=== PATIENT | female | born 1965 | race Caucasian/White ===

== ENCOUNTER → 2017-11-02 | Outpatient (CLI) | payer OTHER | LOC: LAB.O 15:29 | PROVIDERS: ATTEND Specialist | DX: G35 Multiple sclerosis (principal); N39.0 Urinary tract infection, site not specified ==

== ENCOUNTER → 2018-06-26 | Outpatient (CLI) | payer OTHER | LOC: LAB.O 12:43 | PROVIDERS: ATTEND Specialist | DX: G35 Multiple sclerosis (principal); E78.00 Pure hypercholesterolemia, unspecified; E03.9 Hypothyroidism, unspecified ==

== ENCOUNTER → 2018-11-28 | Outpatient (CLI) | payer OTHER | LOC: LAB.O 09:54 | PROVIDERS: ATTEND Specialist | DX: G35 Multiple sclerosis (principal) ==

== ENCOUNTER → 2019-06-26 | Outpatient (CLI) | payer OTHER | LOC: LAB.O 10:05 | PROVIDERS: ATTEND Specialist | DX: G35 Multiple sclerosis (principal); I10 Essential (primary) hypertension; Z79.899 Other long term (current) drug therapy ==